=== PATIENT | male | born 1975 | race Caucasian/White ===

== ENCOUNTER 2023-10-05 18:53 | Emergency (ER) | payer MEDICAID ==
[~2023-10-05] VITALS: Ht 180.3 cm; Wt 109.8 kg
[2023-10-05 19:09] VITALS: BP_SYST 137; PULSE 106; RESP 16; TEMP 96.5; O2SAT 98
[2023-10-05] MEDS: ceFAZolin SODIUM 1 GM VIAL IM ONE (21:16)
[2023-10-05] MEDS: KETOROLAC TROMETHAMINE 60 MG/2 ML VIAL IM ONE (21:17)
[2023-10-05] MEDS ORDERED: IBUP-1969 PO (22:07)
[2023-10-05] MEDS ORDERED: CEPH-548 PO (22:07)
[2023-10-05] MEDS ORDERED: DICL20GE TP (22:07)
[2023-10-05 23:06] VITALS: BP_SYST 130; PULSE 99; RESP 16; TEMP 97.5; O2SAT 98
== END 2023-10-05 23:06 | disposition home or self-care (01) ==
LOC: SED 18:53
DX: L03.317 Cellulitis of buttock (principal); Z79.899 Other long term (current) drug therapy
CPT/HCPCS: 99284; 96372; J0690; J1885